=== PATIENT | female | born 2000 | race Caucasian/White ===

== ENCOUNTER 2023-08-12 17:47 | Emergency (ER) | payer BC ==
[~2023-08-12] VITALS: Ht 167.6 cm; Wt 129.0 kg
[2023-08-13 00:01] LABS: Trichomonas vaginalis (AMP) NOT DETECTED (NEGATIVE)
[2023-08-13 00:23] LABS: GC DNA AMPLIFICATION NEGATIVE (NEGATIVE)
[2023-08-13 02:44] LABS: BASO % 0.3 % (0.0-1.0); EOS # 0.3 10^3/uL (0.0-0.5); EOS % 2.9 % (0.0-3.0); HEMATOCRIT 39.4 % (36.0-47.0); HEMOGLOBIN 12.8 g/dl (12.0-15.5); LYMPH # 4.1 10^3/uL (1.5-5.0); LYMPH % 42.3 % (24.0-44.0); MEAN CORPUSCULAR HEMOGLOBIN 28.6 pg (27.0-33.0); MEAN CORPUSCULAR HGB CONC 32.5 g/dl (32.0-36.5); MEAN CORPUSCULAR VOLUME 87.9 fl (80.0-96.0); MONO # 0.6 10^3/uL (0.0-0.8); MONO % 6.4 % (2.0-8.0); NEUTROPHILS # 4.6 10^3/uL (1.5-8.5); NEUTROPHILS % 47.9 % (36.0-66.0); PLATELET COUNT, AUTOMATED 361 10^3/uL (150-450); RED BLOOD COUNT 4.48 10^6/uL (4.00-5.40); WHITE BLOOD COUNT 9.7 10^3/uL (4.0-10.0)
[2023-08-13 02:58] VITALS: BP 148/75; TEMP 97.3; O2SAT 98
== END 2023-08-13 03:08 | disposition home or self-care (01) ==
LOC: M ED 17:47
DX: T83.39XA Other mechanical complication of intrauterine contraceptive device, initial encounter (principal); Z91.040 Latex allergy status